=== PATIENT | male | born 1970 | race Two or more races ===

== ENCOUNTER 2017-11-08 16:46 | Emergency (ER) | payer BC ==
[2017-11-08] MEDS ORDERED: LIDOCAINE WITH 8.4% SOD BICARB 3 ML DISP.SYRIN. INJ (17:00)
[2017-11-08] MEDS ORDERED: DIPHTH,PERTUSS(ACELL),TET TOX 0.5 ML DISP.SYRIN. VAX IM (17:00)
[2017-11-08] MEDS ORDERED: HYDROcodone/APAP 5/325MG 1 TAB TABLET PO (17:00)
[2017-11-08] MEDS ORDERED: NEOMY/BACITR/POLYMYXIN OINT PACKET. TP (18:30)
== END 2017-11-08 18:55 | disposition home or self-care (01) ==
LOC: ER 16:46
DX: S61.213A Laceration without foreign body of left middle finger without damage to nail, initial encounter (principal); S61.215A Laceration without foreign body of left ring finger without damage to nail, initial encounter; S61.217A Laceration without foreign body of left little finger without damage to nail, initial encounter; W27.0XXA Contact with workbench tool, initial encounter; Y93.89 Activity, other specified; Y92.89 Other specified places as the place of occurrence of the external cause; Y99.8 Other external cause status
CPT/HCPCS: 12001; 12002; 73140; 99284

== ENCOUNTER 2017-11-12 21:28 | Emergency (ER) | payer BC | END 2017-11-12 23:06 | disposition home or self-care (01) | LOC: ER 21:28 | DX: S61.213D Laceration without foreign body of left middle finger without damage to nail, subsequent encounter (principal); S61.215D Laceration without foreign body of left ring finger without damage to nail, subsequent encounter; S61.217D Laceration without foreign body of left little finger without damage to nail, subsequent encounter; X58.XXXD Exposure to other specified factors, subsequent encounter | CPT/HCPCS: 99281 ==

== ENCOUNTER 2017-11-16 20:38 | Emergency (ER) | payer BC | END 2017-11-16 21:23 | disposition home or self-care (01) | LOC: ER 20:38 | DX: S61.213D Laceration without foreign body of left middle finger without damage to nail, subsequent encounter (principal); S61.214D Laceration without foreign body of right ring finger without damage to nail, subsequent encounter; S61.215D Laceration without foreign body of left ring finger without damage to nail, subsequent encounter; X58.XXXD Exposure to other specified factors, subsequent encounter | CPT/HCPCS: 99281 ==

== ENCOUNTER 2021-05-24 18:29 | Emergency (ER) | payer BC ==
[~2021-05-24] VITALS: Ht 167.6 cm; Wt 72.2 kg
[~2021-05-24 18:29] MED LIST: HYDR-3164 PO; SULF1TAB24 PO
--- NOTE | 2021-05-24 21:50 | PHYS DOC ---
Past Medical History Past Medical History: No Pertinent History Past Surgical History: No Surgical History Smoking Status: Never Smoker Alcohol Use: None Drug Use: None General Adult EDM: Chief Complaint: SORE THROAT HPI: HPI: Patient is a 51 year old male who is here with sore throat and foreign body sensation in his midline throat/pharynx. Symptoms began several hours after eating catfish. He was wondering if he had a piece of bone stuck in his throat. He is able to swallow, is able to control secretions. He does have mild odynophagia. He denies dyspnea, cough, gagging or choking. He does have an abrasion on the roof of his mouth, which is not painful, has an overlying hemostatic hematoma, denies any history of significant bleeding at all. He denies any blunt trauma or injury. Denies fevers or chills. Denies voice changes. He has no other complaints. Review of Systems: Review of Systems: Constitutional: Denies fever or chills. [] Eyes: Denies change in visual acuity. [] HENT: Sore throat, foreign body sensation. Abrasion of the hard palate. Respiratory: Denies cough or shortness of breath. [] Cardiovascular: Denies chest pain or edema. [] GI: Denies abdominal pain, nausea, vomiting Musculoskeletal: Denies back pain or joint pain. [] Integument: Denies rash. [] Neurologic: Denies headache, focal weakness or sensory changes. [] Lymphatic: Denies swollen glands. [] Psychiatric: Denies depression or anxiety. [] Heart Score: C/O Chest Pain: No Risk Factors: Risk Factors: DM, Current or recent (<one month) smoker, HTN, HLP, family history of CAD, obesity. Risk Scores: Score 0 - 3: 2.5% MACE over next 6 weeks - Discharge Home Score 4 - 6: 20.3% MACE over next 6 weeks - Admit for Clinical Observation Score 7 - 10: 72.7% MACE over next 6 weeks - Early Invasive Strategies Allergies: Allergies: Allergies Coded Allergies Type Severity Reaction Last Updated Verified No Known Drug Allergies 11/08/17 No Physical Exam: PE: Constitutional: Well developed, well nourished, no acute distress, non-toxic appearance. [] HENT: Normocephalic, atraumatic, oropharynx is patent, clear, uvula midline, no oropharyngeal edema or erythema noted. No exudates. He has a superficial appearing midline abrasion on his hard palate, just adjacent to the soft palate. There is a small overlying hemostatic hematoma. No tenderness. No palpable fluctuance, surrounding warmth erythema. No drainage. His tongue is normal in appearance, no swelling, no tenderness. No erythema. [place] tonsils are normal in appearance. No asymmetry. Sublingual, posterior lingual areas are all normal in appearance. Eyes: PERRLA, EOMI, conjunctiva normal, no discharge. [] Neck: Normal range of motion, no tenderness, supple, no stridor. Trachea is midline. No palpable tenderness, no adenopathy. Thyroid is nontender, no th yromegaly. Cardiovascular:Heart rate regular rhythm, well-perfused appearing. Lungs & Thorax: Bilateral breath sounds clear to auscultation, no stridor, no rales, rhonchi or wheezes. Skin: Warm, dry, no erythema, no rash. [] Back: No tenderness, no CVA tenderness. [] Extremities: No tenderness, no cyanosis, no clubbing, ROM intact, no edema. [] Neurologic: Alert and oriented X 3, normal motor function, norm pleasant and cooperative.al sensory function, no focal deficits noted. [] Psychologic: Affect normal, judgement normal, mood normal. He is pleasant and cooperative. EKG: EKG: [] Radiology/Procedures: Radiology/Procedures: IMAGING REPORT Signed PATIENT: JANIE HUITRON ACCOUNT: [id number] : 1970 LOCATION: ER AGE: 51 SEX: M EXAM STATUS: REG ER ORD. PHYSICIAN: SATNAM ALAS DO REASON: foreign body sensation after eating catfish PROCEDURE: CT SOFT TISSUE NECK WO/W CONT CT NECK SOFT TISSUE WITHOUT AND WITH IV CONTRAST DATE: 05/24/2021 10:45 PM INDICATION: foreign body sensation after eating catfish TECHNIQUE: Axial computed tomography of the neck with intravenous contrast according to the standard neck protocol. 70 cc of Omnipaque 300 was administered intravenously. One or more of the following dose reduction techniques were utilized: Automated exposure control (AEC), Adjustment of mA and/or kV according to patient size, Use of iterative reconstruction technique such as ASiR, CT scan done according to ALARA and image gently/image wisely COMPARISON: None. FINDINGS: Punctate 2 mm calcification in the lingual tonsil on the left. Scattered subcentimeter lymph nodes are seen in the neck. None are pathologically enlarged or abnormally enhancing. The parotid, submandibular, and thyroid glands are normal. The muscles of the neck are normal. Vessels of the neck demonstrate normal course, caliber, and enhancement. The visualized posterior fossa and brain is unremarkable. The visualized orbits and paranasal sinuses are normal. The cervical spine is normal. The visualized lung apices are clear. IMPRESSION: Punctate 2 mm calcification at the left lingual tonsil. Correlate with location of patient's foreign body sensation. Electronically signed by: Gaby Matos MD (05/24/2021 11:13 PM) [facility] DICTATED and SIGNED BY: GABY MATOS MD DATE: 05/24/21 [id number] 0 Course & Med Decision Making: Course & Med Decision Making Pertinent Labs and Imaging studies reviewed. (See chart for details) I discussed the findings, differential diagnosis and plan of care with the patient. He has a superficial appearing abrasion/lesion on his hard palate. Th ere is no active bleeding. No history of active or brisk bleeding. He reports that he swallowed some water, and he no longer has a foreign body sensation or pain noted. He never had any left-sided or right-sided pain, all of his pain previously was in the midline. I performed another oropharyngeal exam, there is no visible abnormality aside from the palate abrasion. There is a 2 mm left- sided lingual tonsillar calcification, described as punctate. This may be incidental finding, no visible evidence of abrasion, swelling, no bleeding. No left-sided discomfort or foreign body sensation. I have given him the number for outpatient ENT services. If his symptoms should recur, if he progresses in any way, he will require outpatient scope. He did initially have some hypertension, his blood pressure did improve here, without specific intervention. He declined pain medications while here. I did tell him he needs to establish care with a primary care physician not only for this issue, but for routine health maintenance and to monitor his blood pressure. He is given outpatient resources for this. Strict return precautions are given. I recommend he eat a soft, bland diet. He is comfortable with the plan for discharge home, verbalizes understanding of instructions provided. Elpidio Disclaimer: Elpidio Disclaimer: This electronic medical record was generated, in whole or in part, using a voice recognition dictation system. Departure Departure Impression: Primary Impression: Abrasion of hard palate Additional Impression: Abrasion of pharynx Qualified Codes: S10.11XA - Abrasion of throat, initial encounter Disposition: HOME / SELF CARE / HOMELESS Condition: STABLE Referrals: NO PCP (PCP) OFELIA RAINEY MD Patient Instructions: Abrasions Additional Instructions: You appear to have a scratch or an abrasion of your roof of your mouth. There is no evidence of infection. You may gently rinse this with warm water. Make sure to eat a soft, bland diet. Avoid hard or sharp foods such as chips, popcorn. I would avoid any bony fish, such as catfish. Return to the ER for facial or neck swelling, temperature 100.4 or higher, if you have shortness of breath, chest pain, if you are unable to swallow your secretions or swallow fluid or for any other concerns. Please contact your primary care physician for follow-up and for routine health maintenance. Follow-up with Dr. Rainey of [facility], if your throat symptoms persist, as you may require further imaging, x-rays or a scope procedure. SATNAM ALAS DO May 24, 2021 21:50
[2021-05-24 22:29] LABS: BASO % 0 % (0-3); EOS # 0.8 x10^3/uL (0.0-0.7); EOS % 9 % (0-3); HEMOGLOBIN 14.6 g/dL (13.0-17.5); LYMPH # 3.1 x10^3/uL (1.0-4.8); LYMPH % 34 % (24-48); MEAN CORPUSCULAR HEMOGLOBIN 29 pg (25-35); MEAN CORPUSCULAR HGB CONC 34 g/dL (31-37); MEAN CORPUSCULAR VOLUME 85 fL (79-100); MONO # 0.8 x10^3/uL (0.0-1.1); MONO % 8 % (0-9); NEUT # 4.5 x10^3/uL (1.8-7.7); NEUT % 49 % (31-73); PLATELET COUNT 265 x10^3/uL (140-400); RED BLOOD COUNT 5.04 x10^6/uL (4.30-5.70); RED CELL DISTRIBUTION WIDTH 12.8 % (11.5-14.5); WHITE BLOOD COUNT 9.1 x10^3/uL (4.0-11.0)
[2021-05-24 22:37] LABS: CALCIUM 8.9 mg/dL (8.5-10.1); GFR 79.4; POTASSIUM 3.6 mmol/L (3.5-5.1)
[2021-05-24] MEDS ORDERED: IOHEXOL 300 MG/ML 100ML VIAL. IV ONE (22:45)
[2021-05-24] MEDS ORDERED: CONTRAST GIVEN. MC PRN (23:00)
--- NOTE | 2021-05-24 23:15 | RAD ---
CT NECK SOFT TISSUE WITHOUT AND WITH IV CONTRAST DATE: 05/24/2021 10:45 PM INDICATION: foreign body sensation after eating catfish TECHNIQUE: Axial computed tomography of the neck with intravenous contrast according to the standard neck protocol. 70 cc of Omnipaque 300 was administered intravenously. One or more of the following do se reduction techniques were utilized: Automated exposure control (AEC), Adjustment of mA and/or kV according to patient size, Use of iterative reconstruction technique such as ASiR, CT scan done accor ding to ALARA and image gently/image wisely COMPARISON: None. FINDINGS: Punctate 2 mm calcification in the lingual tonsil on the left. Scattered subcentimeter lymph nodes are seen in the neck. None are pathologically enlarged or abnorma lly enhancing. The parotid, submandibular, and thyroid glands are normal. The muscles of the neck are normal. Vessels of the neck demonstrate normal course, caliber, and enhancement. The visualized posterior fossa and brain is unremarkable. The visualized orbits and paranasal sinuses are normal. The cervical spine is normal. The visualized lung apices are clear. IMPRESSION: Punctate 2 mm calcification at the left lingual tonsil. Correlate with location of patient's foreign body sensation. Electronically signed by: Ludin Matos MD (05/24/2021 11:13 PM) [facility]
[2021-05-25 00:11] VITALS: BP 138/94
== END 2021-05-25 00:15 | disposition home or self-care (01) ==
LOC: ER 18:29
DX: S10.11XA Abrasion of throat, initial encounter (principal); S00.512A Abrasion of oral cavity, initial encounter; X58.XXXA Exposure to other specified factors, initial encounter; Y93.89 Activity, other specified; Y92.89 Other specified places as the place of occurrence of the external cause; Y99.8 Other external cause status
CPT/HCPCS: 36415; 70492; 80048; 85025; 99285; Q9967